=== PATIENT | male | born 1990 | race African-American/Black ===

== ENCOUNTER 2024-08-29 15:13 | Emergency (ER) | payer SELFPAY ==
[~2024-08-29] VITALS: Ht 167.6 cm; Wt 99.8 kg
[2024-08-29 15:57] VITALS: PULSE 75; RESP 18; TEMP 99
[2024-08-29 20:33] VITALS: PULSE 94; RESP 18; O2SAT 100
== END 2024-08-29 19:14 | disposition home or self-care (01) ==
LOC: ER 16:09
DX: R05.9 Cough, unspecified (principal); J40 Bronchitis, not specified as acute or chronic
CPT/HCPCS: 71045; 99283